=== PATIENT | female | born 1985 | race Caucasian/White ===

== ENCOUNTER 2017-11-23 23:19 | Emergency (ER) | payer OTHER ==
[~2017-11-23] VITALS: Ht 157.5 cm; Wt 87.0 kg
[~2017-11-23 23:19] MED LIST: BENADRYL 50MG C50 MG PO; EPIPEN0.3 MG IM; MEDDOSEPAK PO; PEPCID20 MG PO; STERAPRED DS10 MG PO
[2017-11-24 01:46] VITALS: BP 128/72
== END 2017-11-24 01:44 | disposition home or self-care (01) | DRG 103 ==
LOC: ED 23:19
DX: G43.909 Migraine, unspecified, not intractable, without status migrainosus (principal)